=== PATIENT | male | born 1955 | race Caucasian/White ===

== ENCOUNTER 2022-06-03 16:39 | Emergency (ER) | payer OTHER, SELFPAY ==
[2022-06-03 16:45] VITALS: BP 107/61; PULSE 100; RESP 14; TEMP 36.8; O2SAT 100; BMI 38.0
--- NOTE | 2022-06-03 17:17 | ED_ITS ---
HPI - Allergic Reaction General Time Seen by Provider: 17:18 Date Seen: 06/03/22 Chief complaint: Allergic Reaction Stated complaint: hives, throat swelling Time Seen by Provider: 06/03/22 17:17 Source: patient and RN notes reviewed Mode of arrival: ambulatory Limitations: no limitations History of Present Illness HPI narrative: Patient is here with lip swelling, right tongue swelling, itching and rash that is on his arms and torso. His notes it was more in his legs yesterday as well. He had IV contrast with the CT 6 days ago, did not react immediately. Otherwise he is on no new meds. He states he was given an MRI with dye here prior to that. I see no reports in our system. Will have to check with the motel front desk attendant to make sure that we have the correct chart. He states he did not react that MRI. He was placed on Plavix few weeks ago. They are thinking that it is possibly the contrast dye, his looked it up and states patients can react for up to a week. He notes no other new medicines. He has been on lisinopril but does not just have some facial swelling, has generalized allergic reaction. No shortness of breath. He has been doing Benadryl at home, is not resolving his symptoms. He states he has significant blockage in his left neck, I question patient whether they were considering surgery and he states that he was told to come back in 90 days, it is considered quite dangerous for him? ? MD complaint: allergic reaction, hives and facial swelling Onset (ago): day(s) (Started yesterday) Exposure: unknown Known history of allergy to: Believes it might be the contrast dye with a CT done at [place] Symptoms: rash, itching, facial swelling, lip swelling and tongue swelling Severity: moderate Treatment prior to arrival: benadryl Related Data Home Medications Medication Instructions Recorded Confirmed aspirin 81 mg capsule 81 mg PO DAILY 06/03/22 06/03/22 atorvastatin 10 mg tablet 10 mg PO DAILY 06/03/22 06/03/22 chlorthalidone 25 mg tablet 12.5 mg PO QAM 06/03/22 06/03/22 clopidogrel 75 mg tablet 75 mg PO DAILY 06/03/22 06/03/22 lisinopril 20 mg tablet 20 mg PO DAILY 06/03/22 06/03/22 trazodone 50 mg tablet 100 mg PO QPM PRN 06/03/22 06/03/22 Previous Rx's Medication Instructions Recorded famotidine 20 mg tablet (Pepcid) 20 mg PO BID #14 tabs 06/03/22 Allergies Allergy/AdvReac Type Severity Reaction Status Date / Time Iodinated Contrast Media Allergy Severe Anaphylaxis Verified 06/03/22 16:49 Review of Systems Status of ROS Reports: 6 or more systems reviewed and unremarkable except as noted in History and below Exam Const: Vital Signs, click to edit/add: Vital Signs - 24 hr 06/03/22 16:45 06/03/22 17:26 Temperature 98.3 F Pulse Rate [Pulse Oximeter] 100 Respiratory Rate 14 Blood Pressure [Ri ght Upper Arm] 107/61 Pulse Oximetry 100 94 Oxygen Delivery Me thod Room Air Documenting provider has reviewed patient's vital signs: yes Common normals: no apparent distress, average body habitus, oriented x3, no limitations, healthy appearing and alert General appearance: cooperative, co mfortable, well kempt and well developed Other: Is noted to be itching himself. HENMT: Common normals: normocephalic, head/scalp atraumatic, hearing grossly normal bilaterally and moist oral mucous membranes Head and scalp: normocephalic and atraumatic Other: Seems to have some mild upper lip swelling. Tongue maybe mildly swollen, baseline this patient has a thick neck, seems to have some significant soft tissue in his posterior pharynx that is not swollen. His speech is normal, not hoarse. Eye: Common normals: PERRL, EOMs intact bilaterally, conjunctivae normal and no scleral icterus Conjunctiva: conjunctiva(e) normal Pupil: PERRL Neck & C-Spine: Common normals: full ROM, no lymphadenopathy and supple Chest: Other: Has erythematous circular areas and plaques consistent with your urticaria on his chest and torso Resp: Common normals: normal respiratory effort, no retractions, no use of accessory muscles and clear to auscultation bilaterally Auscultation: clear to auscultation bilaterally Cardio: Common normals: regular rate, regular rhythm, S1 normal heart sound, S2 normal heart sound, no gallops, no clicks and no murmurs Rate: regular rate Rhythm: regular rhythm Heart sounds: S1 normal and S2 normal GI: Common normals: Normal to inspection, nondistended, normoactive bowel sounds present and soft to palpation Palpation: soft Extremity: Other: Is wearing pants but can see your urticarial changes on his extremities/arms. Neuro: Common normals: oriented x3 Sensorium/orientation: alert Psych: Appearance: well kempt Course Course Hospital Course: I have reviewed with patient that I do recommend we proceed with IV medications. He is quite adamant he does not want to do this. Reviewed with him that that would given the best delivery in best chance for resolution. I do not think that he requires epinephrine at this time and do think there is risk of giving him epinephrine with him describing the vessel blockage that he potentially has and left neck. He has had the symptoms since yesterday, are not worsening but not improving. Will abide his requesting give him IM Solu-Medrol, 125 mg, 50 mg IM Benadryl. Will also give him oral Zyrtec 10 mg as well as 20 mg oral Pepcid. Will have him on pulse oximetry and observe him for a while here. He will likely need to go out and prednisone. Reevaluation(s) Reevaluation #1: Patient is feeling better, requesting to go home. His itching is resolving, the your urticaria is resolving. He feels his oral facial symptoms are much better. Plan on discharge to home, will give prednisone from [facility] as his pharmacy is closed. He can start oral Pepcid tomorrow and will send was pharmacy. Time: 18:18 Vital Signs Vital signs: Initial Vital Signs Temperature 98.3 F 06/03/22 16:45 Temperature Source Temporal Artery Scan 06/03/22 16:45 Pulse Rate 100 06/03/22 16:45 Respiratory Rate 14 06/03/22 16:45 Blood Pressure 107/61 06/03/22 16:45 Blood Pressure Mean 76 06/03/22 16:45 Blood Pressure Position Sitting 06/03/22 16:45 Pulse Oximetry 100 06/03/22 16:45 Oxygen Delivery Method Room Air 06/03/22 16:45 Vital Signs Temperature 98.3 F 06/03/22 16:45 Pulse Rate 100 06/03/22 16:45 Respiratory Rate 14 06/03/22 16:45 Blood Pressure 107/61 06/03/22 16:45 Pulse Oximetry 100 06/03/22 16:45 Oxygen Delivery Method Room Air 06/03/22 16:45 Temperature 98.3 F 06/03/22 16:45 Pulse Rate 100 06/03/22 16:45 Respiratory Rate 14 06/03/22 16:45 Blood Pressure 107/61 06/03/22 16:45 Pulse Oximetry 94 06/03/22 17:26 Oxygen Delivery Method Room Air 06/03/22 16:45 Critical Care Time Critical Care Time Critical Care Time: No Discharge Plan Discharge Clinical Impression: Allergic reaction Patient Disposition: Home, Self-Care Condition: Stable Instructions: General Allergic Reaction (ED) Additional Instructions: Start prednisone tonight, take with food and follow-up prescription directions. Take Zyrtec 1 tablet once to twice a day as needed for ongoing hives or allergic symptoms. Can still use Benadryl per package instructions as needed for hives or allergic symptoms. Also recommend taking Pepcid twice daily for the next week. Pepcid can block histamine differently than the Zyrtec or Benadryl. If you have recurrent symptoms of oral/tongue swelling, difficulty breathing or swallowing, significant concern for return of allergic reaction, do recommend being evaluated emergently. It is possible that this is the CT IV contrast, suggest premedication prior to further scans. Activity Level: Activity as Tolerated Prescriptions: New famotidine [Pepcid] 20 mg tablet 20 mg PO BID Qty: 14 0RF No Action trazodone 50 mg tablet 100 mg PO QPM PRN atorvastatin 10 mg tablet 10 mg PO DAILY lisinopril 20 mg tablet 20 mg PO DAILY clopidogrel 75 mg tablet 75 mg PO DAILY chlorthalidone 25 mg tablet 12.5 mg PO QAM aspirin 81 mg capsule 81 mg PO DAILY Stand Alone [facility]: [facility]
[2022-06-03 17:26] VITALS: O2SAT 94
[2022-06-03] MEDS: diphenhydrAMINE 50 MG/ML inj IM (17:48)
[2022-06-03] MEDS: FAMOTIDINE 20 MG TABLET PO (17:49)
[2022-06-03] MEDS: CETIRIZINE HCL 10 MG TABLET PO (17:49)
[2022-06-03] MEDS: METHYLPREDNISOLONE SOD SUCC 62.5 MG/ML (125) 125 MG IM (17:49)
== END 2022-06-03 18:31 | disposition home or self-care (01) ==
PROVIDERS: Emergency Provider Family Medicine; PCP Family Medicine
DX: L50.9 Urticaria, unspecified (principal); T78.49XA Other allergy, initial encounter
CPT/HCPCS: 94761; 96372; 99283; A9270; J1200; J2930

== ENCOUNTER 2022-10-29 13:20 | Emergency (ER) | payer MEDICARE, SELFPAY ==
[2022-10-29 13:30] VITALS: BP 120/74; PULSE 86; RESP 20; TEMP 36.2; O2SAT 94; BMI 36.0
--- NOTE | 2022-10-29 13:57 | ED.CHESTPAIN ---
HPI - Chest Pain General Time Seen by Provider: 13:57 Date Seen: 10/29/22 Chief Complaint: Chest Pain Stated Complaint: Chest pain Time Seen by Provider: 10/29/22 13:36 Source: patient and RN notes reviewed Mode of arrival: ambulatory Limitations: no limitations History of Present Illness HPI narrative: This 67-year-old male was referred to clinic with complaints of episode of chest pain he is had chest pain for about 2 weeks now. He is not having it currently. This weekend he had a spell where was severe but his was sleeping, did not get evaluated. He feels it in his chest will go into the left arm. No shortness of breath with it. No palpitations. He has not been sick with any cough or cold symptoms. This is happening in the morning for sure, most mornings. He feels his activity is being limited by this but cannot tell me that it has happened with stress or activity. He has known left carotid disease reportedly and the surgery was not safe to be done for him per his report. He saw vascular doctors at [place]. He denies any history of prior heart disease, not aware of any cardiac stress testing. He is still on his aspirin and Plavix daily. Related Data Home Medications Medication Instructions Recorded Confirmed aspirin 81 mg capsule 81 mg PO DAILY 06/03/22 10/29/22 atorvastatin 10 mg tablet 10 mg PO DAILY 06/03/22 10/29/22 chlorthalidone 25 mg tablet 12.5 mg PO QAM 06/03/22 10/29/22 clopidogrel 75 mg tablet 75 mg PO DAILY 06/03/22 10/29/22 lisinopril 20 mg tablet 20 mg PO DAILY 06/03/22 10/29/22 trazodone 50 mg tablet 100 mg PO QPM PRN 06/03/22 10/29/22 Allergies Allergy/AdvReac Type Severity Reaction Status Date / Time Iodinated Contrast Media Allergy Severe Anaphylaxis Verified 06/03/22 16:49 Review of Systems Status of ROS Reports: 6 or more systems reviewed and unremarkable except as noted in History and below PFSH PFS Social History Smoking Status: Former smoker What tobacco products do you use: cigarettes Do you use any of these nicotine containing products: None Second hand tobacco smoke exposure: Yes How often do you have a drink containing alcohol: 2-4 times a month How many standard drinks containing alcohol do you have on a typical day: 3 or 4 How often do you have six or more drinks on one occasion: Never AUDIT-C Alcohol total score: 3 Non-prescribed substance use: denies use Exam Const Vital Signs, click to edit/add: Vital Signs - 24 hr 10/29/22 13:30 10/29/22 14:49 Temperature 97.2 F L Pulse Rate [Pulse Oximeter] 86 Respiratory Rate 20 Blood Pressure [Right Upper Arm] 120/74 Pulse Oximetry 94 95 Oxygen Delivery Method Room Air 67-year-old male is alert interactive no apparent distress. Sclera clear, face atraumatic. Neck is thick, no no masses. Lungs are clear, good air entry no wheezing crackles. CV regular rate and rhythm, no murmur, normal S1 and S2. Abdomen is soft, nondistended, no organomegaly. He has no lower extremity edema. Able to speak in complete sentences. Documenting provider has reviewed patient's vital signs: yes Course Course ED Course: Patient certainly has concerning symptoms that may represent anginal equivalent/cardiac disease. His initial EKG ears reassuring. We will obtain basic blood work and look at his troponin. He is asymptomatic at this time. He understands that if his troponin is normal, will likely talk to Cardiology about getting him arranged for more urgent evaluation. If he does have left carotid disease, he is certainly at risk for other vessel disease. Reevaluation(s) Time of Reevaluation #1: 16:06 Reevaluation #1: D-dimer is now back and normal, labs reviewed with patient, no acute findings. Will be paging Cardiology to discuss case. Time of Reevaluation #2: 16:43 Reevaluation #2: Hurt patient telling staff that his chest heaviness or pressure had returned, ordered point of care troponin and EKG, was considering options between sublingual nitroglycerin versus starting nitroglycerin drip, consideration for heparin. Patient's symptoms resolved quickly, would say within a couple of minutes. Did order 324 mg aspirin at this time. Current EKG showing sinus rhythm, 67 beats per minute, no acute ischemic change. Await point of care troponin and follow clinically. If further spell beyond this, will confer with Cardiology regarding nitro drip and heparin. Consultations Consultation #1: Did speak with cardiology on-call Dr. Marshall and reviewed case. He agrees that patient is high risk, he is able to tell me that the patient has a focal left common carotid stenosis of 95%. He actually is recommending that the patient come inpatient have a CTA or angiogram, is noted to have iodine contrast allergy and will need premedication. Patient is pain-free, last episode was before 11:00 a.m. this morning. We will be arranging transfer when [facility] can take him, will update the patient on this. Time: 16:24 Consultation #2: Did update cardiology on-call. Agreed with initiation of heparin ACS protocol drip no bolus. Subsequent chest pain consider starting nitroglycerin drip. Will update patient. Time: 16:56 Vital Signs Vital signs: Initial Vital Signs Temperature 97.2 F L 10/29/22 13:30 Temperature Source Temporal Artery Scan 10/29/22 13:30 Pulse Rate 86 10/29/22 13:30 Respiratory Rate 20 10/29/22 13:30 Blood Pressure 120/74 10/29/22 13:30 Blood Pressure Mean 89 10/29/22 13:30 Blood Pressure Position Supine 10/29/22 13:30 Pulse Oximetry 94 10/29/22 13:30 Oxygen Delivery Method Room Air 10/29/22 13:30 Vital Signs Temperature 97.2 F L 10/29/22 13:30 Pulse Rate 86 10/29/22 13:30 Respiratory Rate 20 10/29/22 13:30 Blood Pressure 120/74 10/29/22 13:30 Pulse Oximetry 94 10/29/22 13:30 Oxygen Delivery Method Room Air 10/29/22 13:30 Temperature 97.2 F L 10/29/22 13:30 Pulse Rate 86 10/29/22 13:30 Respiratory Rate 20 10/29/22 13:30 Blood Pressure 120/74 10/29/22 13:30 Pulse Oximetry 95 10/29/22 14:49 Oxygen Delivery Method Room Air 10/29/22 13:30 MDM - Chest Pain Lab Data Attestation: I reviewed the patient's lab results. Labs: Lab Results 10/29/22 10/29/22 10/29/22 Range/Units 14:32 16:46 17:05 WBC 8.43 (4.50-11.00) K/uL RBC 3.50 L (4.30-5.90) m/uL Hgb 12.0 L (13.5-17.5) gm/dL Hct 35.4 L (37.0-53.0) % MCV 101 H (80-100) fL MCH 34 (26-34) pg MCHC 34 (32-36) gm/dL RDW Coeff of Rosalina 13.3 (11.5-15.5) % Plt Count 148 (140-440) K/uL Neut % (Auto) 64.4 (42.0-72.0) % Lymph % (Auto) 15.7 L (20-44) % Door % (Auto) 11.5 H (0.0-11.0) % Eos % (Auto) 7.2 H (0.0-7.0) % Baso % (Auto) 0.4 (0.0-3.0) % Neut # (Auto) 5.43 (1.7-7.0) K/uL Lymph # (Auto) 1.30 (0.90-2.90) K/uL Door # (Auto) 1.00 H (0.00-0.90) K/UL Eos # (Auto) 0.60 H (0.00-0.50) K/uL Baso # (Auto) 0.03 (0.00-0.30) K/uL Abs Immat Gran (auto) 0.07 (0.00-0.30) K/uL Imm/Tot Granulo (auto) 0.8 % INR 1.00 (0.91-1.10) APTT 29 (23-33) Seconds D-Dimer Quant (PE/DVT) 0.50 (0.00-0.50) ug/ml Sodium 139 (135-149) mmol/L Potassium 4.7 (3.6-5.1) mmol/L Chloride 105 (96-114) mmol/L Carbon Dioxide 24 (20-32) mmol/L Anion Gap 10 (7-15) mEq/L BUN 26 (7-30) mg/dL Creatinine 1.3 (0.5-1.5) mg/dL Estimated Creat Clear 54.81 Estimated GFR 61 ml/min Glucose 93 (60-115) mg/dL Lactate 1.7 (0.5-1.9) mmol/L Calcium 9.9 (8.4-10.6) mg/dL Total Bilirubin 1.0 (0.1-1.5) mg/dL AST 29 (12-35) U/L ALT 36 (4-50) U/L Alkaline Phosphatase 50 (40-150) U/L Troponin I 0.02 (0.01-0.04) ng/mL C-Reactive Protein < 0.5 L (0.5-1.0) mg/dL NT-Pro-B Natriuret Pep 195 pg/mL Total Protein 8.6 H (6.0-8.3) g/dL Albumin 4.8 (3.3-5.0) g/dL POC Troponin I 0.00 L (0.01-0.04) ng/ml Imaging Data Chest x-ray: Attestation: I have reviewed the pertinent imaging results. Radiologist's impression: Patient: PEYTON CORBIN Facility:?[facility] Patient ID:?[id number] Site Patient ID:?[id number]. Site :?[id number] Study:?XRay Chest 1VIEW-10/29/2022 2:45:00 PM Ordering Physician:Chay Branch Final Report: Indication: Left-sided chest pain Comparison: None available. Technique: Single AP view chest Findings: There is hyperinflation and chronic interstitial change. There are diffusely increased interstitial markings likely representing pulmonary edema with basilar atelectasis and parenchymal scar. The cardiac silhouette is mildly prominent. The bony thorax is grossly intact. Impression: Diffusely increased interstitial markings likely representing pulmonary edema. No dense consolidation. Dictated by Jeramie Wright MD @ 10/29/2022 3:10:41 PM (Electronic Signature) ECG Data Attestation: I personally reviewed and interpreted this ECG as follows: (Sinus rhythm, 83 beats per minute. No acute ischemic change. Flipped T-waves without ST segment changes isolated in V1 and lead 3. QT corrected 437 milliseconds. ) ECG interpretation date: 10/29/22 ECG interpretation time: 14:02 Discharge Plan Discharge Clinical Impression: Unstable angina pectoris, Chest pain Patient Disposition: Xfer [facility] Discharge Location: [facility] Prescriptions: No Action trazodone 50 mg tablet 100 mg PO QPM PRN atorvastatin 10 mg tablet 10 mg PO DAILY lisinopril 20 mg tablet 20 mg PO DAILY clopidogrel 75 mg tablet 75 mg PO DAILY chlorthalidone 25 mg tablet 12.5 mg PO QAM aspirin 81 mg capsule 81 mg PO DAILY Stand Alone Forms: [employer] Info Instructions
--- NOTE | 2022-10-29 14:14 | CRLHL7_ITS ---
For Patients: As a result of the Century Cures Act, medical imaging exams and procedure reports are released immediately into your electronic medical record. You may view this report before your referring provider. If you have questions, please contact your health care provider. Indication: Left-sided chest pain Comparison: None available. Technique: Single AP view chest Findings: There is hyperinflation and chronic interstitial change. There are diffusely increased interstitial markings likely representing pulmonary edema with basilar atelectasis and parenchymal scar. The cardiac silhouette is mildly prominent. The bony thorax is grossly intact. Impression: Diffusely increased interstitial markings likely representing pulmonary edema. No dense consolidation. Dictated by Jeramie Wright MD @ 10/29/2022 3:10:41 PM (Electronically Signed)
[2022-10-29 14:37] LABS: Lactate* 1.7 mmol/L (0.5-1.9)
[2022-10-29 14:40] LABS: Basophils Absolute Auto 0.03 K/uL (0.00-0.30); Basophils Percent Auto 0.4 % (0.0-3.0); Eosinophils Percent Auto 7.2 % (0.0-7.0); Hematocrit 35.4 % (37.0-53.0); Immature Granulocytes Abs Auto 0.07 K/uL (0.00-0.30); Immature Granulocytes Pct Auto 0.8 %; Lymphocytes Percent Auto 15.7 % (20-44); Mean Corpuscular HGB Conc 34 gm/dL (32-36); Mean Corpuscular Hemoglobin 34 pg (26-34); Mean Corpuscular Volume 101 fL (80-100); Monocytes Percent Auto 11.5 % (0.0-11.0); Neutrophils Absolute Auto 5.43 K/uL (1.7-7.0); Neutrophils Percent Auto 64.4 % (42.0-72.0); Platelet Count* 148 K/uL (140-440); RDW Coefficient of Variation % 13.3 % (11.5-15.5); White Blood Count* 8.43 K/uL (4.50-11.00)
[2022-10-29 14:42] LABS: Slide Review Reflex No
[2022-10-29 14:49] VITALS: O2SAT 95
[2022-10-29 14:53] LABS: Albumin* 4.8 g/dL (3.3-5.0); Chloride* 105 mmol/L (96-114); Sodium* 139 mmol/L (135-149)
[2022-10-29 14:54] LABS: Potassium* 4.7 mmol/L (3.6-5.1)
[2022-10-29 14:56] LABS: Alanine Aminotransferase* 36 U/L (4-50); Alkaline Phosphatase* 50 U/L (40-150); Anion Gap 10 mEq/L (7-15); Aspartate Amino Transferase* 29 U/L (12-35); Blood Urea Nitrogen* 26 mg/dL (7-30); Carbon Dioxide* 24 mmol/L (20-32); Creatinine* 1.3 mg/dL (0.5-1.5); Est. Creatinine Clearance* 54.81; Estimated Glomerular Filt Rate 61 ml/min; Total Protein* 8.6 g/dL (6.0-8.3)
[2022-10-29 14:57] LABS: Calcium* 9.9 mg/dL (8.4-10.6); Glucose* 93 mg/dL (60-115)
[2022-10-29 14:59] LABS: C Reactive Protein* < 0.5 mg/dL (0.5-1.0)
[2022-10-29 15:08] LABS: Troponin I* 0.02 ng/mL (0.01-0.04)
[2022-10-29 15:10] LABS: NT Pro B Type NatriureticPept* 195 pg/mL
[2022-10-29] MEDS: ASPIRIN 81 MG TAB.CHEW 324 MG PO (16:49)
[2022-10-29 17:36] LABS: Prothrombin Time 13.8 Seconds
[2022-10-29 17:37] LABS: Partial Thromboplastin Time* 29 Seconds (23-33)
[2022-10-29] MEDS: HEPARIN 25,000 UNIT/500 ML BAG 20 UNIT IV (17:38)
--- NOTE | 2022-10-29 18:39 | ED.NURSE ---
Patient care transferred to [facility] crew. Pt Heparin bolus initiated prior to departure. Report was given to Mallorie farnsworth [place] regarding patient. RN called Mallorie at [facility] again to advise that patient was being transferred at 1840 hours via EMS.
== END 2022-10-29 18:41 | disposition short-term general hospital (02) ==
PROVIDERS: Emergency Provider Family Medicine; PCP Family Medicine
DX: I20.0 Unstable angina (principal); R07.9 Chest pain, unspecified
CPT/HCPCS: 36415; 71045; 80053; 83605; 83880; 84484; 85025; 85379; 85610; 85730; 86140; 93005; 94761; 99284; 99285; A9270; J1644

== ENCOUNTER 2022-10-29 18:33 | Outpatient (CLI) | payer MEDICARE, SELFPAY | END 2022-10-29 18:34 | disposition home or self-care (01) | LOC: AMB 11-02 14:33 | PROVIDERS: PCP Family Medicine; Visit Provider Family Medicine | DX: R07.89 Other chest pain (principal) | CPT/HCPCS: A0425; A0434 ==